=== PATIENT | female | born 1955 | race Caucasian/White ===

== ENCOUNTER 2022-03-05 03:01 | Emergency (ER) | payer MEDICARE, SELFPAY ==
[2022-03-05 03:05] VITALS: BP 147/75; PULSE 63; RESP 17; TEMP 36.4; O2SAT 100
--- NOTE | 2022-03-05 04:43 | ED.GENADULT ---
HPI - General Adult General Chief complaint: Urogenital-Female Stated complaint: UTI symptoms since 2199 Time Seen by Provider: 03/05/22 04:18 History of Present Illness HPI narrative: Patient is a 66-year-old female who presents the emergency department with chief complaint of dysuria patient reports that she has had some frequency and burning with urination. Patient reports no nausea no flank pain no abdominal pain. Related Data Allergies Allergy/AdvReac Type Severity Reaction Status Date / Time No Known Allergies Allergy Verified 03/05/22 03:08 Review of Systems Review of Systems: A 10 system review of systems was completed on the patient and is negative except for what is stated in the HPI. Nursing and ancillary documentation was reviewed. Exam Narrative: GENERAL: Well-appearing, well-nourished, and in no acute distress. HEAD: Normocephalic, atraumatic. EYES: PERRLA and EOMI. ENT: Nares clear, no rhinorrhea or epistaxis. Mucous membranes moist. NECK: Supple. CHEST: Clear to auscultation. No respiratory distress. HEART: Regular rate and rhythm. No murmur heard. Normal peripheral pulses. ABDOMEN: Soft, nontender, nondistended, normal active bowel sounds. EXTREMITIES: Normal range of motion. No edema. SKIN: Warm, dry, no rash. NEURO: No focal deficits. Alert and oriented x3. PSYCH: Normal mood and affect. Course Vital Signs Vital signs: Vital Signs Temperature 36.4 C 03/05/22 03:05 Pulse Rate 63 03/05/22 03:05 Respiratory Rate 17 03/05/22 03:05 Blood Pressure 147/75 H 03/05/22 03:05 Pulse Oximetry 100 03/05/22 03:05 Oxygen Delivery Room Air 03/05/22 03:05 Temperature 36.4 C 03/05/22 03:05 Pulse Rate 63 03/05/22 03:05 Respiratory Rate 17 03/05/22 03:05 Blood Pressure 147/75 H 03/05/22 03:05 Pulse Oximetry 100 03/05/22 03:05 Oxygen Delivery Room Air 03/05/22 03:05 Medical Decision Making Vital Signs Vital Signs: Vital Signs Temperature 36.4 C 03/05/22 03:05 Pulse Rate 63 03/05/22 03:05 Respiratory Rate 17 03/05/22 03:05 Blood Pressure 147/75 H 03/05/22 03:05 Pulse Oximetry 100 03/05/22 03:05 Oxygen Delivery Room Air 03/05/22 03:05 Temperature 36.4 C 03/05/22 03:05 Pulse Rate 63 03/05/22 03:05 Respiratory Rate 17 03/05/22 03:05 Blood Pressure 147/75 H 03/05/22 03:05 Pulse Oximetry 100 03/05/22 03:05 Oxygen Delivery Room Air 03/05/22 03:05 Lab Data Labs: Lab Results 03/05/22 Range/Units 04:36 Urine Color Yellow (Yellow) Urine Appearance Clear (Clear) Urine pH 5.5 (5.0-9.0) Ur Specific [employer] 1.010 (1.001-1.035) Urine Protein Trace (Negative) mg/dL Urine Glucose (UA) Negative (Negative) mg/dL Urine Ketones Negative (Negative) mg/dL Ur Blood (Man) 3+ H (Negative) Urine Nitrate Negative (Negative) Urine Bilirubin Negative (Negative) Urine Urobilinogen 0.2 (<2.0) mg/dL Leukocyte Esterase Rfl 3+ H (Negative) BILLIE/UL Urine RBC 11-20 H (0-2) /hpf Urine WBC >75 H /hpf Urine WBC Clumps Present H (None) /HPF Ur Squamous Epith Cells Rare (Few) /hpf Urine Bacteria Trace /hpf Urine Mucus Rare /lpf Urine Characteristics Cloudy Discharge Plan Discharge Clinical Impression: Urinary tract infection Patient Disposition: Home, Self-Care Condition: Stable Instructions: Antibiotic Form, Acute Urinary Retention in Women (ED) Prescriptions: New cephalexin 500 mg capsule 500 mg PO Q12H 7 Days Qty: 14 0RF Follow-up/Referrals: Radha,MD Lexis [Primary Care Provider] - Time of Disposition: 05:48
[2022-03-05 05:11] LABS: Appearance Urine Clear (Clear); Bilirubin Urine Negative (Negative); Blood Urine 3+ (Negative); Color Urine Yellow (Yellow); Glucose Urine UA Negative (Negative); Ketones Urine Negative (Negative); Leukocyte Esterase Ur 3+ LEU/UL (Negative); Nitrate Urine Negative (Negative); Protein Urine Trace mg/dL (Negative); Urobilinogen Urine 0.2 mg/dL (<2.0); pH Urine 5.5 (5.0-9.0)
[2022-03-05 05:19] LABS: Bacteria Urine Trace /hpf; Mucus Urine Rare /lpf; Squamous Epithelial Cell Urine Rare /hpf (Few); WBC Clumps Urine Present /HPF; WBC Urine >75 /hpf
[2022-03-05 05:21] LABS: Add Urine Microscopic? YES
[2022-03-05] MEDS: CEPHALEXIN 500 MG CAPSULE PO (05:54)
[2022-03-05 05:57] VITALS: BP 130/88; PULSE 88; RESP 16; O2SAT 98
== END 2022-03-05 06:00 | disposition home or self-care (01) ==
PROVIDERS: Emergency Provider Emergency Medicine; PCP Internal Medicine Geriatric Medicine
DX: N39.0 Urinary tract infection, site not specified (principal)
CPT/HCPCS: 81001; 87077; 87086; 87186; 99283; A9270